=== PATIENT | male | born 1930 | race Caucasian/White ===

== ENCOUNTER 2017-07-26 13:59 | Inpatient (IN) | payer OTHER ==
[~2017-07-26] VITALS: Ht 165.1 cm; Wt 54.0 kg
[2017-07-26 14:30] LABS: BASOPHIL (%) 0.4 % (0-1); EOSINOPHIL (%) 0.1 % (0-5); HEMATOCRIT 29.4 % (38.0-50.0); HEMOGLOBIN 8.2 G/DL (12.5-16.6); IMMATURE GRANULOCYTE (%) 1.1 % (0.0-0.7); LYMPHOCYTE (%) 5.5 % (15-42); LYMPHOCYTE COUNT 0.4 K/uL (1.0-2.8); MCH 19.6 PG (29.0-34.0); MCHC 27.9 G/DL (30.0-36.0); MCV 70.2 FL (86-99); MONOCYTE (%) 8.7 % (3-12); MONOCYTE COUNT 0.7 K/uL (0-0.8); NEUTROPHIL (%) 84.2 % (45-76); NEUTROPHIL COUNT 6.7 K/uL (1.8-6.4); NRBC (%) 0.9 /100 WBC (0-0); PLATELET COUNT 308 K/uL (156-360); RBC DIS.WIDTH-CV 21.9 % (11.8-14.6); RBC DIS.WIDTH-SD 53.7 % (39-53); RED BLOOD COUNT 4.19 M/uL (4.00-5.50); WHITE BLOOD COUNT 7.9 K/uL (4.1-10.2)
[2017-07-26 14:33] LABS: AMYLASE 68 IU/L (1-118); CHLORIDE 109 mEq/L (99-109); INTER. NORMALIZED RATIO 1.5; POTASSIUM 4.9 mEq/L (3.7-5.4); SODIUM 140 mEq/L (136-147)
[2017-07-26 14:35] LABS: GLUCOSE 113 mg/dL (70-99); PTT 27.5 SEC (25-37)
[2017-07-26 14:38] LABS: SERUM ETHYL ALCOHOL < 10 mg/dL
[2017-07-26 14:39] LABS: CREATININE 1.5 mg/dL (0.6-1.3)
[2017-07-26 14:40] LABS: UREA NITROGEN (BUN) 32 mg/dL (9-23)
[2017-07-26 14:41] LABS: GFR ESTIMATE (CALCULATED) 47 mL/min/ (58.99-99999)
[2017-07-26 14:42] LABS: LIPASE 88 U/L (1.0-51.0)
[2017-07-26 14:45] LABS: TROP-I INTERPRETATION POSITIVE
[2017-07-26 14:46] LABS: TROPONIN-I 2.14 ng/mL (0.0-0.30)
[2017-07-26 15:17] LABS: CREATINE KINASE 294 IU/L (1-294)
[2017-07-26] MEDS ORDERED: SIMVASTATIN20 MG PO (18:10)
[2017-07-26] MEDS ORDERED: DIPROSONE 0.05%15 G1 TP (18:10)
[2017-07-26] MEDS ORDERED: ERGOCALCIF50000 UNIT PO (18:10)
[2017-07-26] MEDS ORDERED: METOPROLOL TART25 MG PO (18:10)
[2017-07-26] MEDS ORDERED: PROTONIX40 MG PO (18:11)
[2017-07-26] MEDS ORDERED: SYNTHROID25 MCG PO (18:11)
[2017-07-26] MEDS ORDERED: ADULT ASPIRIN R81 MG PO (18:11)
[2017-07-26 21:06] VITALS: BP 170/135
== END 2017-07-27 16:45 | DRG 280 ==
LOC: EME 13:59 → EDOF 16:31 → ENRESERV 16:34 → 5EAST 22:00
PROVIDERS: Emergency Medicine
DX: I21.4 Non-ST elevation (NSTEMI) myocardial infarction (principal); I63.411 Cerebral infarction due to embolism of right middle cerebral artery; G93.6 Cerebral edema; G81.94 Hemiplegia, unspecified affecting left nondominant side; I50.32 Chronic diastolic (congestive) heart failure; Z51.5 Encounter for palliative care; Z66 Do not resuscitate; I48.2 Chronic atrial fibrillation; K21.9 Gastro-esophageal reflux disease without esophagitis; I11.0 Hypertensive heart disease with heart failure; I16.0 Hypertensive urgency; Z79.01 Long term (current) use of anticoagulants; Z82.3 Family history of stroke
CPT/HCPCS: 70450; 70496; 70498; 80048; 80048 91; 81003; 82150; 82550; 83690; 84484; 85025; 85025 91; 85610; 85730; 86850; 86900; 86901; 93005; 99281; 99285; G0480; J2060; J2270; J7030

== ENCOUNTER 2017-07-27 17:04 | Inpatient (IN) | payer OTHER ==
[~2017-07-27 17:04] MED LIST: ADULT ASPIRIN R81 MG PO; DIPROSONE 0.05%15 G1 TP; ERGOCALCIF50000 UNIT PO; METOPROLOL TART25 MG PO; PROTONIX40 MG PO; SIMVASTATIN20 MG PO; SYNTHROID25 MCG PO
== END 2017-07-31 14:54 | disposition hospice, home (50) | DRG 64 ==
LOC: 5EAST 17:04 → ENRESERV 17:06 → 5EAST 17:09 → ENPENDDIS 07-31 14:30 → 5EAST 07-31 14:54
DX: I63.511 Cerebral infarction due to unspecified occlusion or stenosis of right middle cerebral artery (principal); Z51.5 Encounter for palliative care; I21.4 Non-ST elevation (NSTEMI) myocardial infarction; G93.6 Cerebral edema; I50.32 Chronic diastolic (congestive) heart failure; I48.2 Chronic atrial fibrillation; K21.9 Gastro-esophageal reflux disease without esophagitis; I11.0 Hypertensive heart disease with heart failure
CPT/HCPCS: J2060; J2270